=== PATIENT | female | born 1990 | race Asian ===

== ENCOUNTER 2023-12-13 15:20 | Emergency (ER) | payer OTHER, SELFPAY ==
[2023-12-13 15:41] VITALS: BP 132/82; PULSE 82; RESP 16; TEMP 36.9; O2SAT 98
--- NOTE | 2023-12-13 15:45 | DI.RAD_ITS ---
Exam(s) XR CHEST 2V PA LATERAL EXAM: XR CHEST 2V PA LATERAL CLINICAL HISTORY: positive TB skin test TECHNIQUE: 2D digital imaging was performed of the chest. Two images were obtained. PA and lateral views were obtained. COMPARISON: No exams were available for comparison FINDINGS: MEDIASTINUM: Normal. HEART: Normal. PULMONARY VASCULATURE: Normal. LUNGS: Clear. PLEURAL SPACE: No pleural effusion or pneumothorax. BONE:Within normal limits for the patient's age. OTHER FINDINGS:Normal. IMPRESSION: No acute pulmonary findings. DATA REPOSITORY: RADIATION DOSE DELIVERED:
--- NOTE | 2023-12-13 16:02 | W.ED.GENAD ---
Discharge Plan Disposition Patient Disposition: Home Discharge Details Clinical Impression: Positive reaction to tuberculin skin test Primary Care Provider: Kaleigh Jennings ED Provider: Tami Holbrook Home Meds and New Rx's Prescriptions: No Action No Known Home Meds Discharge Instructions Additional Instructions: Your chest x-ray was negative, there is no sign of TB in your lungs at this time. Your blood test is still pending, results should be available within the week. Please call [facility] first thing Friday morning to schedule follow-up appointment to discuss the results of your test. Referrals: Kaleigh Jennings, ADRI [Primary Care Provider] - HPI General Date/Time Provider Initiated Documentation: 12/13/23 15:28. HPI Narrative: Ifeoma is a 33-year-old female who presents to the emergency department today for TB skin test read. She had tuberculin skin test placed on (48 hours ago), noticed it was reddened and swollen today. She denies fever/chills, night sweats, unusual weight loss, cough, hemoptysis, chest pain, fatigue. She reports she is in good health. She emigrated from the [facility] last year. Prior to coming to this country she had a physical which included chest x-ray. She did not have BCG vaccine in childhood. She had the skin test performed as admission criteria for [employer] training program. No known TB positive contacts. LMP last week. Physical exam remarkable for large area of erythema surrounding 10 mm area of induration on left forearm. Patient is alert and oriented, in no acute distress. Easy work of breathing. Concern for positive TB test inpatient from high risk country, recent immigrant. Will obtain chest x-ray to r/o cavitatary lesions and draw QuantiFERON for PCP follow up in asymtpmatic pt. I independently interpreted the following test: Chest x-ray negative, this was confirmed by radiologist Dr. Moreira. Reviewed discharge instructions with patient, including importance of following up with PCP for quant to [place] results and necessity of starting treatment if this is positive. She voiced agreement with plan of care. Educated on red flags indicating TB infection. Related Data Home Medications ?Medication ?Instructions ?Recorded ?Confirmed Unknown [No Known Home Meds] 12/11/23 12/13/23 Allergies Allergy/AdvReac Type Severity Reaction Status Date / Time No Known Allergies Allergy Verified 12/13/23 15:44 General Stated Complaint: GenMedical ELE: 4 Review of Systems Narrative: see HPI Exam Const General: cooperative, healthy appearing, comfortable and no acute distress Nutritional Appearance: average body habitus Orientation: alert and oriented x3 Resp Effort & Inspection: normal respiratory effort and able to speak in complete sentences Skin General skin exam: other (10 mm area of induration to L forearm at area of TB skin test) Course Vital Signs Vital signs: Vital Signs Temperature 36.9 C 12/13/23 15:41 Pulse 82 12/13/23 15:41 Respiratory Rate 16 12/13/23 15:41 Blood Pressure 132/82 12/13/23 15:41 Pulse Oximetry 98 12/13/23 15:41 Temperature 36.9 C 12/13/23 15:41 Temperature Source Oral 12/13/23 15:41 Pulse 82 12/13/23 15:41 Respiratory Rate 16 12/13/23 15:41 Blood Pressure 132/82 12/13/23 15:41 Pulse Oximetry 98 12/13/23 15:41 Oxygen Delivery Method Room Air 12/13/23 15:41 Oxygen Flow Rate 0 12/13/23 15:41 Medical Decision Making Imaging Data Radiologic Study: Radiologist's impression: Exam(s) XR CHEST 2V PA LATERAL EXAM: XR CHEST 2V PA LATERAL CLINICAL HISTORY: positive TB skin test TECHNIQUE: 2D digital imaging was performed of the chest. Two images were obtained. PA and lateral views were obtained. COMPARISON: No exams were available for comparison FINDINGS: MEDIASTINUM: Normal. HEART: Normal. PULMONARY VASCULATURE: Normal. LUNGS: Clear. PLEURAL SPACE: No pleural effusion or pneumothorax. BONE:Within normal limits for the patient's age. OTHER FINDINGS:Normal. IMPRESSION: No acute pulmonary findings. Quality:SDOH Health Related Social Needs: No Data to Display PFSH All Active Problems (Updated 12/13/23 @ 17:37 by Tami Dominguez) Positive reaction to tuberculin skin test (Acute) Elevated blood pressure reading without diagnosis of hypertension (Acute) Family History (Updated 12/02/23 @ 14:32 by Sierra Valle RN) Mother Hypertension Father No problems noted. Social History (Updated 12/12/23 @ 13:04 by Brooke Randall) Smoking/Tobacco Use Status: Never Second Hand Exposure: Yes Smoking risk assessment performed?: Yes Alcohol Intake: never Adopted: No Caregiver/Support person: No Household members: spouse Housing: house Number of Children: 0 number of grandchildren: 0 Communication Needs: None Education Level: high school Do you need help understanding health information?: Never current occupation: restaurant employee Sexually active: Yes Current gender identity: female What is your relationship status?: How often do you talk on the phone with friends or family?: three or more times per week How often do you get together with friends or relatives?: once per week How often do you attend latter-day or yazidism services?: 4 or more times per year Do you belong to any clubs or organized social groups?: no Panel score (0-1 are the most socially isolated patients): 3 NHANES result reviewed/action taken: Yes Duration: 15-30 minutes/day Frequency: 5-6 times per week Joyce/Anglican: Rastafari Special joyce needs: No Seatbelt use: always Helmet use: No Drive intox or ride w/intox taxi driver: No Firearms in home: Yes Firearms unloaded and locked: Yes Do you feel safe at home: Yes Do you feel safe in your relationship?: Yes Victim of physical abuse: No Victim of emotional abuse: No Victim of sexual abuse: No Would you like helpful sources: No
[2023-12-13 17:51] VITALS: BP 112/79; PULSE 68; RESP 18; TEMP 36.9; O2SAT 98
[2023-12-15 15:34] LABS: TB1 Ag minus Nil 8.17 IU/ml
[2023-12-16 14:03] LABS: TB Interpretation Positive (Negative)
--- NOTE | 2023-12-16 14:23 | W.ED.FU ---
Date of service: 12/16/23 Time of Service: 14:24 Follow Up Plan: patient's serum TB qft positive, called patient and she is asymptomatic, advised she needs to keep her pcp appointment for this and return precautions discussed. She was advised to try and be quarantined until she is able to see her pcp
--- NOTE | 2023-12-16 15:02 | NUR.NOTE ---
Per Dr Isiah Tan I called the [place] [facility] and reported the TB test was positive. The person who took the information was Angela. They will call if they have any questions. Nursing Note:
--- NOTE | 2023-12-16 15:19 | W.ED.FU ---
Date of service: 12/16/23 Time of Service: 15:19 Follow Up Plan: Patient's positive result was relayed to the health department.
== END 2023-12-13 17:54 | disposition home or self-care (01) ==
PROVIDERS: Emergency Provider Nurse Practitioner Family; PCP Nurse Practitioner Family
DX: R76.11 Nonspecific reaction to tuberculin skin test without active tuberculosis (principal)
CPT/HCPCS: 36415; 99283; 71046; 86480

== ENCOUNTER 2023-12-18 11:19 | Outpatient (REF) | payer OTHER, SELFPAY ==
--- NOTE | 2023-12-18 17:00 | PAPFT_PTH ---
PATIENT: Ifeoma Armas LOC: [facility] U#:[id number] AGE/SX: 33/F ROOM: RE12/18/[address]: Kaleigh Jennings NP : [id number] BED: DIS: 12/18/2023 SPEC #: [id number] RECD: 12/19/23 13:14 STATUS: EDILBERTO REMike #: [id number] LAURA: 12/18/23 17:[address]: Kaleigh Jennings DEPT: [facility] Cytology RECD BY: Bernadette Strong Tissues: 1 - CX/ENDOCX FOR PAP SMEARS Procedures: PAP THIN PREP/UVM Screening Comments: [id number]
== END 2023-12-18 11:20 | disposition home or self-care (01) ==
LOC: LBN 11:19
PROVIDERS: PCP Nurse Practitioner Family; Visit Provider Nurse Practitioner Family
DX: R76.11 Nonspecific reaction to tuberculin skin test without active tuberculosis (principal); Z22.7 Latent tuberculosis; Z12.4 Encounter for screening for malignant neoplasm of cervix
CPT/HCPCS: 88142

== ENCOUNTER 2024-01-08 16:24 | Outpatient (CLI) | payer SELFPAY ==
[2024-01-12 13:09] LABS: Measles IgG Antibody Positive (See Note); Mumps Antibody IgG Positive (See Note)
[2024-01-12 13:11] LABS: Rubella IgG Ab (UVM) Positive (See Note); Varicella IgG Antibody Positive (See Note)
== END 2024-01-08 16:25 | disposition home or self-care (01) ==
LOC: LBO 16:26
PROVIDERS: PCP Nurse Practitioner Family; Visit Provider Nurse Practitioner Family
DX: Z02.1 Encounter for pre-employment examination (principal); Z11.59 Encounter for screening for other viral diseases; Z01.84 Encounter for antibody response examination
CPT/HCPCS: 36415; 86787; 86735; 86762; 86765

== ENCOUNTER 2024-02-02 02:21 | Outpatient (CLI) | payer OTHER, SELFPAY ==
[2024-02-02 16:44] LABS: HCT 41.1 % (36.0-46.0); HGB 13.6 g/dL (11.2-15.7); MCH 28.6 pg (27.0-33.0); MCHC 33.1 % (32.0-36.0); MCV 87 fL (80-95); MPV 10.5 fL (8.0-11.0); Platelet Count 282 10^3/uL (130-400); RBC 4.75 10^6/uL (3.93-5.22); RDW 12.7 % (11.7-14.6); WBC 7.89 10^3/uL (4.4-10.8)
[2024-02-02 17:18] LABS: Hemoglobin A1C 5.4 % (<5.7)
[2024-02-02 17:22] LABS: ALT 22 U/L (14-59); AST 18 U/L (15-37); Albumin 4.4 g/dL (3.4-5.0); Alkaline Phosphatase 64 U/L (46-116); Anion Gap 9.4 mmol/L (3-11); BUN 8 mg/dL (7-18); Bilirubin, Total 0.68 mg/dL (0.2-1.0); CO2 28.6 mmol/L (21.0-32.0); CREATININE 0.7 mg/dL (0.55-1.02); Calcium 9.6 mg/dL (8.5-10.1); Calculated LDL 111 mg/dL (<100); Chloride 104 mmol/L (98-107); Cholesterol 181 mg/dL (<200); Estimated GFR 115.59 (mL/min/1.73m2); Glucose 83 mg/dL (74-106); HDL Cholesterol 62 mg/dL (40-60); Potassium 4.1 mmol/L (3.5-5.1); Sodium 142 mmol/L (136-145); TSH (W/Ref FT4) 2.61 uIU/mL (0.36-3.74); Triglyceride 40 mg/dL (<150)
== END 2024-02-02 02:22 | disposition home or self-care (01) ==
LOC: LBO 02:21
PROVIDERS: PCP Nurse Practitioner Family; Visit Provider Nurse Practitioner Family
DX: R03.0 Elevated blood-pressure reading, without diagnosis of hypertension (principal)
CPT/HCPCS: 36415; 80053; 80061; 85027; 83036; 84443